=== PATIENT | male | born 1945 | race Caucasian/White ===

== ENCOUNTER → 2017-07-13 | Day surgery (SDC) | payer OTHER ==
[2017-07-06 11:04] VITALS: Ht 170.2 cm; Wt 86.4 kg
[~2017-07-13] VITALS: Ht 170.2 cm; Wt 86.4 kg
[~2017-07-13] MED LIST: ATEN50TA8 PO; BRIMONIDINE TARTRATE 0.2% 5ML OP SCH; BRIMONIDINE TARTRATE 0.2% 5ML OPL SCH; DORZ2SOL17 OPB; LISI10TA PO; METF1TAB53 PO; MULTTAB58 PO; PILOCARPINE HCL 2% OP SOLN 15 ML BTL ONE; PILOCARPINE HCL 2% OP SOLN 15 ML BTL OPL SCH; PRLSR20 PO; PROPARACAINE 0.5% OP SOLN PER DROP CHARGE OPL SCH; PROPARACAINE HCL 0.5% OP SOLN 15 ML BTL OPL ONE; PrednisoLONE ACET 1% OP SUSP 5 ML BTL OP SCH; SIMV20TA2 PO; TAMS0.4C38 PO; TRIATAB3 PO
[2017-07-13 11:46] VITALS: BP 150/86; PULSE 51; O2SAT 98
--- NOTE | 2017-07-13 11:49 | Discharge Instructions-SurgCtr ---
Discharge Instructions Date of Service Jul 13, 2017. Visit Reason for Visit: Left Eye Glaucoma Discharge Discharge Diagnosis / Problem: glaucoma Discharge Goals Goal(s): Improve disease control Activity Recommendations Activity Limitations: resume your previous activity Anesthesia . Post Anesthesia Instructions: If you have had General Anesthesia or IV Sedation: * Do not drive today. * Resume driving when surgeon permits. * Do not make important decisions or sign legal documents today. * Call surgeon for: 1. Temperature elevations greater than 101 degrees F. 2. Uncontrollable pain. 3. Excessive bleeding. 4. Persistent nausea and vomiting. 5. Medication intolerance (nausea, vomiting or rash). * For nausea and vomiting use only clear liquids such as: tea, soda, bouillon until nausea subsides, then gradually increase diet as tolerated. * If you have any concerns or questions, call your surgeon's office. If physician is unavailable and it is an emergency, call 911 or go to the nearest emergency room. . Instructions / Follow-Up Instructions / Follow-Up ACTIVITY RECOMMENDATIONS: * No limitations RETURN TO SCHOOL/WORK: * No limitations DIET: * No limitations MEDICATIONS: Resume previous medications unless instructed otherwise by your surgeon. * Please use Prednisolone acetate drops prescription given to you at your office appointment as follows: 1 drop in effected eye 4 times a day for 5 days. * Continue all glaucoma drops as usual with no interruption to either eye. SPECIAL CARE INSTRUCTIONS: Call your doctor at with any concerns or problems. FOLLOW UP VISIT: Follow-up with Dr Abraham in 1 hour. Diet Recommendations Home Diet: resume previous diet Pending Studies Studies pending at discharge: no Medical Emergencies . Who to Call and When: Medical Emergencies: If at any time you feel your situation is an emergency, please call 911 immediately. . Non-Emergent Contact Non-Emergency issues call your: Vocational Coordinator . . "Provider Documentation" section prepared by Luis Abraham. .
--- NOTE | 2017-07-13 11:51 | [facility] Operative Report ---
Operative Report Date of Service Jul 13, 2017. Operative Report Diagnosis: Glaucoma, left eye Procedure: SLT inferior 180 degrees, 52 spots, 1.3 mJ Complications: none I attest to the content of the Intraoperative Record and any orders documented therein. Any exceptions are noted below.
== END | disposition home or self-care (01) ==
LOC: X.SURG 10:43
PROVIDERS: ATTEND Ophthalmology
DX: H40.9 Unspecified glaucoma (principal); I10 Essential (primary) hypertension

== ENCOUNTER → 2017-11-04 | Day surgery (SDC) | payer OTHER ==
[2017-11-01 08:37] VITALS: Ht 170.2 cm; Wt 86.4 kg
[~2017-11-04] VITALS: Ht 170.2 cm; Wt 86.4 kg
[~2017-11-04] MED LIST changes: +BRIMONIDINE TART 0.2% OP SOLN PER DROP CHARGE OPR ONE; -BRIMONIDINE TARTRATE 0.2% 5ML OPL SCH; +BRIMONIDINE TARTRATE 0.2% 5ML OPR SCH; -PILOCARPINE HCL 2% OP SOLN 15 ML BTL OPL SCH; +PILOCARPINE HCL 2% OP SOLN 15 ML BTL OPR SCH; -PROPARACAINE 0.5% OP SOLN PER DROP CHARGE OPL SCH; +PROPARACAINE 0.5% OP SOLN PER DROP CHARGE OPR SCH; -PROPARACAINE HCL 0.5% OP SOLN 15 ML BTL OPL ONE; +PrednisoLONE ACET 1% OP SUSP 5 ML BTL OPR ONE
[2017-11-04 10:51] VITALS: BP 159/89; PULSE 62; O2SAT 97
--- NOTE | 2017-11-04 10:52 | Discharge Instructions-SurgCtr ---
Discharge Instructions Date of Service Nov 04, 2017. Visit Reason for Visit: Glaucoma Right Eye Discharge Discharge Diagnosis / Problem: glaucoma Discharge Goals Goal(s): Improve disease control Activity Recommendations Activity Limitations: per Instructions/Follow-up section Anesthesia . Post Anesthesia Instructions: If you have had General Anesthesia or IV Sedation: * Do not drive today. * Resume driving when surgeon permits. * Do not make important decisions or sign legal documents today. * Call surgeon for: 1. Temperature elevations greater than 101 degrees F. 2. Uncontrollable pain. 3. Excessive bleeding. 4. Persistent nausea and vomiting. 5. Medication intolerance (nausea, vomiting or rash). * For nausea and vomiting use only clear liquids such as: tea, soda, bouillon until nausea subsides, then gradually increase diet as tolerated. * If you have any concerns or questions, call your surgeon's office. If physician is unavailable and it is an emergency, call 911 or go to the nearest emergency room. . Instructions / Follow-Up Instructions / Follow-Up ACTIVITY RECOMMENDATIONS: * No limitations RETURN TO SCHOOL/WORK: * No limitations DIET: * No limitations MEDICATIONS: Resume previous medications unless instructed otherwise by your surgeon. * Please use Prednisolone acetate drops prescription given to you at your office appointment as follows: 1 drop in effected eye 4 times a day for 5 days. * Continue all glaucoma drops as usual with no interruption to either eye. SPECIAL CARE INSTRUCTIONS: Call your doctor at with any concerns or problems. FOLLOW UP VISIT: Follow-up with Dr Abraham in 1 hour. Diet Recommendations Home Diet: resume previous diet Pending Studies Studies pending at discharge: no Medical Emergencies . Who to Call and When: Medical Emergencies: If at any time you feel your situation is an emergency, please call 911 immediately. . Non-Emergent Contact Non-Emergency issues call your: Telegraph And Teletype Operator . . "Provider Documentation" section prepared by Luis Abraham. .
--- NOTE | 2017-11-04 10:53 | [facility] Operative Report ---
Operative Report Date of Service Nov 04, 2017. Operative Report Diagnosis: Glaucoma, right eye Procedure: SLT right eye, superior 180 degrees 57 spots, 1.3 mj Complications: none I attest to the content of the Intraoperative Record and any orders documented therein. Any exceptions are noted below.
== END | disposition home or self-care (01) ==
LOC: X.SURG 10:18
PROVIDERS: ATTEND Ophthalmology
DX: H40.1110 Primary open-angle glaucoma, right eye, stage unspecified (principal); I10 Essential (primary) hypertension; E78.00 Pure hypercholesterolemia, unspecified